=== PATIENT | male | born 1965 | race Hispanic/Latino ===

== ENCOUNTER 2018-01-28 22:51 | Emergency (ER) | payer SELFPAY ==
[2018-01-29 00:10] LABS: INR 1.1; PROTHROMBIN TIME 12.6 Seconds (9.8-13.1)
[2018-01-29 00:11] LABS: BASO # 0.1 K/uL (0.0-0.2); BASO % 0.8 % (0.0-2.0); EOS % 0.7 % (0.0-4.0); HEMOGLOBIN 12.6 g/dL (12.0-18.0); LYMPH # 3.1 K/uL (1.0-4.3); LYMPH % 43.8 % (20.0-40.0); MEAN CELL VOLUME 83.6 fl (80.0-94.0); MEAN CORPUSCULAR HEMOGLOBIN 27.7 pg (27.0-31.0); MEAN CORPUSCULAR HGB CONC 33.1 g/dL (33.0-37.0); MEAN PLATELET VOLUME 8.1 fl (7.2-11.7); MONO # 0.5 K/uL (0.0-0.8); MONO % 6.8 % (0.0-10.0); NEUT # 3.4 K/uL (1.8-7.0); NEUT % 47.9 % (50.0-75.0); RBC 4.55 Mil/uL (4.40-5.90); RED CELL DISTRIBUTION WIDTH 15.9 % (11.5-14.5)
[2018-01-29 00:12] LABS: PARTIAL THROMBOPLASTIN TIME 30.4 Seconds (25.6-37.1)
[2018-01-29 00:16] LABS: ALB/GLOB RATIO 1.2 (1.0-2.1); ALBUMIN 4.3 g/dL (3.5-5.0); CALCIUM 8.9 mg/dL (8.4-10.2)
[2018-01-29 00:31] LABS: BARBITURATES, UR NEGATIVE (NEGATIVE)
[2018-01-29 00:33] LABS: BENZODIAZEPINES, UR NEGATIVE (NEGATIVE); OPIATES, UR POSITIVE (NEGATIVE); PHENCYCLIDINE, UR NEGATIVE (NEGATIVE)
--- NOTE | 2018-01-29 01:14 | ED PDOC ---
HPI: Psych/Substance Abuse Time Seen by Provider: 01/28/18 23:10 Chief Complaint (Nursing): Psychiatric Evaluation Chief Complaint (Provider): Psychiatric Evaluation ED Caveat: Intoxicated History Per: Patient History/Exam Limitations: intoxication Current Symptoms Are (Timing): Still Present Additional History Per: EMS Additional Complaint(s): 52 year old male with pmhx of bipolar disorder and HTN presents to the ED via EMS for a crisis evaluation. Patient states he was recently discharged from a rehab center s/p right hip surgery. As per EMS, patient was reported to have been suicidal, but now he denies si/hi. Of note, patient is not a good historian secondary to appearing intoxicated despite denying alcohol use. He does admit to taking one percocet around noon for his right hip, which was prescribed to him. PMD: Jaquan Ramachandran Past Medical History Reviewed: Historical Data, Nursing Documentation, Vital Signs Vital Signs: Last Vital Signs Temp 98 F 01/28/18 22:54 Pulse 120 H 01/28/18 22:54 Resp 22 01/28/18 22:54 BP 160/100 H 01/28/18 22:54 Pulse Ox 100 01/28/18 22:54 - Medical History PMH: Bipolar Disorder, HTN - Surgical History Other surgeries: right hip surgery - Family History Family History: States: Unknown Family Hx - Social History Current smoker - smoking cessation education provided: Yes Alcohol: Social - Allergies Allergies/Adverse Reactions: Allergies Allergy/AdvReac Type Severity Reaction Status Date / Time No Known Allergies Allergy Verified 01/28/18 22:53 Review of Systems Review Of Systems: ROS cannot be obtained secondary to pt's inabilty to answer questions. Psych: Negative for: Suicidal ideation (and homicidal ideation) Physical Exam - Reviewed Nursing Documentation Reviewed: Yes Vital Signs Reviewed: Yes - Physical Exam Appears: Positive for: No Acute Distress Head Exam: Positive for: ATRAUMATIC, NORMOCEPHALIC Skin: Positive for: Normal Color. Negative for: Rash Eye Exam: Positive for: Normal appearance ENT: Positive for: Normal ENT Inspection Neck: Positive for: Normal, Painless ROM Cardiovascular/Chest: Positive for: Tachycardia Respiratory: Positive for: Normal Breath Sounds. Negative for: Respiratory Distress Extremity: Positive for: Normal ROM Neurologic/Psych: Positive for: Alert (and awake), Other (rambling speech, flight of ideas) - Laboratory Results Result Diagrams: 01/29/18 00:03 01/29/18 00:03 - ECG O2 Sat by Pulse Oximetry: 100 (RA) Pulse Ox Interpretation: Normal Medical Decision Making Medical Decision Making: Time: 2310 Initial Impression: 52 year old male presenting for crisis eval in setting of known bipolar and manic behavior, possible intoxication Initial Plan: --Acetaminophen chemistry --Alcohol serum --CMP --Drug screen --Crisis eval --1:1 observation --U-dip --CBC with differential --PTT / PT --Ativan 2mg IM 0528 Labs reviewed and significant for elevated blood alcohol level. As per pick up worker, patient is diagnosed with alcohol induced mood disorder and stable for d/c. Scribe Attestation: Documented by Ivanna Schmitt, acting as a scribe for Sanya Burris MD. Provider Scribe Attestation: All medical record entries made by the Scribe were at my direction and personally dictated by me. I have reviewed the chart and agree that the record accurately reflects my personal performance of the history, physical exam, medical decision making, and the department course for this patient. I have also personally directed, reviewed, and agree with the discharge instructions and disposition. Disposition - Clinical Impression Clinical Impression: Alcohol-induced mood disorder - Patient ED Disposition Is Patient to be Admitted: No Counseled Patient/Family Regarding: Studies Performed, Diagnosis - Disposition Disposition: Routine/Home Disposition Time: 05:29 Condition: STABLE Instructions: Alcohol Abuse and Alcoholism (DC) Forms: [employer] ([place])
[2018-01-29 06:56] VITALS: BP 139/81; PULSE 87; RESP 16; TEMP 98.1; O2SAT 97
== END 2018-01-29 06:55 | disposition home or self-care (01) ==
LOC: H.ER 22:51
DX: F10.94 Alcohol use, unspecified with alcohol-induced mood disorder (principal); F17.200 Nicotine dependence, unspecified, uncomplicated; Z86.59 Personal history of other mental and behavioral disorders; I10 Essential (primary) hypertension; Y90.8 Blood alcohol level of 240 mg/100 ml or more
CPT/HCPCS: 80053; 85025; 85610; 85730; 96374; G0480; J2060